=== PATIENT | female | born 1975 | race Caucasian/White ===

== ENCOUNTER 2022-03-05 15:09 | Outpatient (CLI) | payer MEDICAID, SELFPAY ==
--- NOTE | 2022-03-05 15:15 | MR_ITS ---
WS: [id number] MRI CERVICAL SPINE NONCONTRAST TECHNIQUE: Sagittal T1, T2 and STIR imaging. Axial T2, gradient, and fiesta imaging. CLINICAL INFORMATION: M47.812 - Spondylosis without myelopathy or radiculopathy... COMPARISON: None. FINDINGS: Straightening of the normal cervical lordosis. Central disc bulging C5-C6 with slight contact of the cervical cord and mild central canal stenosis. Cord signal is normal. Slight anterolisthesis C3 on C4 . C2-C3: Disc osteophyte complex with endplate ridging. Mild RIGHT bony foraminal narrowing. Mild facet arthropathy. C3-C4: Slight anterolisthesis. Disc osteophyte complex. Spinal canal is patent. Moderate LEFT bony foraminal narrowing with advanced LEFT facet arthropathy. C4-C5: Slight anterolisthesis. Advanced LEFT facet arthropathy. Mild LEFT bony foraminal narrowing. C5-C6: Slight retrolisthesis. Disc osteophyte complex with slight contact of the cervical cord and mi ld central canal stenosis. Mild to moderate RIGHT and no LEFT foraminal narrowing. Moderate facet art hropathy. C6-C7: Mild disc osteophytic ridging. Mild RIGHT and no significant LEFT foraminal narrowing. Moderat e RIGHT facet arthropathy. Tiny shallow central protrusion. C7-T1: No significant disc bulging. Spinal canal and foramen are patent. Visualized brain stem structures: Normal. Prevertebral soft tissues: Normal. MR/MR cervical spin wo con* [id number] IMPRESSION: 1. Straightening of the normal cervical lordosis. Cord signal is normal. Sligh t retrolisthesis C5 on C6. 2. Disc osteophyte complex C5-C6 with shallow central disc osteophyte protrusi on. Slight contact of the cervical cord. Mild central canal stenosis. 3. Moderate LEFT C3-C4 bony foraminal narrowing with advanced LEFT facet arthr opathy. 4. Mild RIGHT C2-C3, LEFT C4-C5, RIGHT C5-C6 and RIGHT C6-C7 bony foraminal na rrowing. 5. Advanced LEFT facet arthropathy C4-C5.
== END 2022-03-05 15:10 | disposition home or self-care (01) ==
LOC: RAD 15:11
PROVIDERS: PCP Registered Nurse; Visit Provider Registered Nurse
DX: M47.812 Spondylosis without myelopathy or radiculopathy, cervical region (principal); M25.78 Osteophyte, vertebrae; M48.02 Spinal stenosis, cervical region
CPT/HCPCS: 72141

== ENCOUNTER → 2022-07-03 10:21 | Outpatient (BNVA) | payer MEDICAID, SELFPAY | PROVIDERS: PCP Registered Nurse; Visit Provider Registered Nurse | DX: L98.9 Disorder of the skin and subcutaneous tissue, unspecified (principal) | CPT/HCPCS: 88304 ==

== ENCOUNTER → 2022-08-28 09:13 | Outpatient (BNVA) | payer MEDICAID, SELFPAY | PROVIDERS: PCP Registered Nurse | DX: R31.9 Hematuria, unspecified (principal) | CPT/HCPCS: 81000; 87086 ==

== ENCOUNTER → 2022-09-04 09:02 | Outpatient (BNVA) | payer MEDICAID, SELFPAY | PROVIDERS: PCP Registered Nurse; Visit Provider Registered Nurse | DX: E53.8 Deficiency of other specified B group vitamins (principal); A60.04 Herpesviral vulvovaginitis | CPT/HCPCS: 80053; 82306; 82607; 85025 ==

== ENCOUNTER → 2023-02-04 11:42 | Outpatient (BNVA) | payer MEDICAID, SELFPAY | PROVIDERS: PCP Registered Nurse; Visit Provider Registered Nurse | DX: M54.9 Dorsalgia, unspecified (principal); Z12.11 Encounter for screening for malignant neoplasm of colon; M54.6 Pain in thoracic spine; G89.29 Other chronic pain; Z90.710 Acquired absence of both cervix and uterus; Z79.899 Other long term (current) drug therapy | CPT/HCPCS: 81000 ==

== ENCOUNTER 2023-05-29 09:04 | Day surgery (SDC) | payer MEDICAID, SELFPAY ==
[2023-05-29 09:18] VITALS: BP 94/81; PULSE 83; RESP 18; TEMP 36.2; O2SAT 98; BMI 23.6
[2023-05-29] MEDS: sodium chloride 0.9% 1,000 ML 30 ML IV (09:22)
--- NOTE | 2023-05-29 09:29 | P.ANESASSM_ITS ---
Pre-Anesthetic Assessment Height/Weight: Height 1.55 m Weight 56.699 kg Temp Pulse Resp BP Pulse Ox O2 Del Method 97.2 F L 83 18 94/81 98 Room Air 05/29/23 09:18 05/29/23 09:18 05/29/23 09:18 05/29/23 09:18 05/29/23 09:18 05/29/23 09:18 Preop Diagnosis: Abdominal Pain Operation Date: 05/29/23 10:00 Proposed Procedures p [id number] egd [id number] colon G0121 screen colon A risk Z12.11,R10.9(Not Applicable) - Rafael Campbell DO s Colonoscopy(Not Applicable) - Rafael Campbell DO Familial anesthetic complications: none Was Beta Tracy taken within 24 hours: N/A Last intake: Intake Last Liquid Date 05/28/23 Last Liquid Time 21:00 Last Solid Date 05/27/23 Last Solid Time 20:00 Social No alcohol and No tobacco Exam alert, oriented x 3, clear to auscultation bilaterally and regular rate & rhythm Airway Submandibular: within normal limits Cervical ROM: within normal limits (cervical pain noted) Dentition: false Pulmonary None reported CV/HEM None reported None reported Hepatic None reported GI abdominal pain Metabolic None reported Anesthetic Plan ASA status: 1 Anesthesia: MAC Medications/Allergies Home Medications Medication Instructions Recorded Confirmed Last Taken Type acetaminophen 325 mg tablet 325 mg PO QID PRN Pain 06/21/22 05/29/23 05/28/23 History (Tylenol) tizanidine 4 mg capsule (Zanaflex) 4 mg PO TID PRN Pain 07/03/22 05/29/23 05/28/23 History naproxen sodium 220 mg tablet 220 mg PO BID PRN Pain 04/01/23 05/29/23 05/28/23 History (Aleve) celecoxib 200 mg capsule (Celebrex) 200 mg PO DAILY #30 caps 05/15/23 05/29/23 05/28/23 Rx valacyclovir 500 mg tablet 500 mg PO DAILY 05/27/23 05/29/23 05/28/23 History Allergies Allergy/AdvReac Type Severity Reaction Status Date / Time butorphanol [From Stadol] Allergy Unknown Verified 05/27/23 12:05 Sulfa (Sulfonamide Allergy Unknown Verified 05/27/23 12:05 Antibiotics) [facility] Anesthesia Medical History Environmental and seasonal allergies Herpes simplex virus (HSV) infection of vagina History of chronic back pain Surgical History History of lumpectomy of left breast 5 months agp Hx of carpal tunnel repair right wrist Hx of tubal ligation Hx of cone biopsy of cervix History of left oophorectomy History of hysterectomy Right ovary remains Family History Mother Diabetes Grandmother Diabetes Denies family history of CAD (coronary artery disease) Hyperlipidemia Chronic kidney disease (CKD) Lung disease Cancer Hypertension Stroke Social History Smoking and tobacco/nicotine status: former use of tobacco/nicotine Quit status (tobacco/nicotine): has quit using Year quit tobacco: 2018 Alcohol intake: never Substance/Drug Use: never Adopted: No Caregiver/support person: No Lives independently: No Household members: spouse Marital status: service: No Current occupational status: employed Sexually active: Yes Do you think of yourself as: Straight/Heterosexual Current gender identity: Female Data Anesthesia Cardiac Studies: No Data to Display
--- NOTE | 2023-05-29 09:47 | PM.HP ---
Providers/Chief Complaint Primary Care Provider: JUDE Velasco Chief Complaint: Z12.11, R10.9 History of Present Illness Marie Ferguson is a 48 year old female Review of Systems General: Reports: 10 or more systems reviewed and unremarkable except in HPI and below Medications/Allergies Home Medications Medication Instructions Recorded Confirmed Last Taken Type acetaminophen 325 mg tablet 325 mg PO QID PRN Pain 06/21/22 05/29/23 05/28/23 History (Tylenol) tizanidine 4 mg capsule (Zanaflex) 4 mg PO TID PRN Pain 07/03/22 05/29/23 05/28/23 History naproxen sodium 220 mg tablet 220 mg PO BID PRN Pain 04/01/23 05/29/23 05/28/23 History (Aleve) celecoxib 200 mg capsule (Celebrex) 200 mg PO DAILY #30 caps 05/15/23 05/29/23 05/28/23 Rx valacyclovir 500 mg tablet 500 mg PO DAILY 05/27/23 05/29/23 05/28/23 History Allergies Allergy/AdvReac Type Severity Reaction Status Date / Time butorphanol [From Stadol] Allergy Unknown Verified 05/27/23 12:05 Sulfa (Sulfonamide Allergy Unknown Verified 05/27/23 12:05 Antibiotics) PFSH Acute PFSH: Medical History Environmental and seasonal allergies Herpes simplex virus (HSV) infection of vagina History of chronic back pain Surgical History History of lumpectomy of left breast 5 months agp Hx of carpal tunnel repair right wrist Hx of tubal ligation Hx of cone biopsy of cervix History of left oophorectomy History of hysterectomy Right ovary remains Family History Mother Diabetes Grandmother Diabetes Denies family history of CAD (coronary artery disease) Hyperlipidemia Chronic kidney disease (CKD) Lung disease Cancer Hypertension Stroke Social History Smoking and tobacco/nicotine status: former use of tobacco/nicotine Quit status (tobacco/nicotine): has quit using Year quit tobacco: 2018 Alcohol intake: never Substance/Drug Use: never Adopted: No Caregiver/support person: No Lives independently: No Household members: spouse Marital status: service: No Current occupational status: employed Sexually active: Yes Do you think of yourself as: Straight/Heterosexual Current gender identity: Female Vitals/I&O/Wt Last Vital Signs Temp 97.2 F L 05/29/23 09:18 Pulse 83 05/29/23 09:18 Resp 18 05/29/23 09:18 BP 94/81 05/29/23 09:18 Pulse Ox 98 05/29/23 09:18 O2 Del Method Room Air 05/29/23 09:18 Weight last 48 hrs Weight 125 lb A&P Assessment and plan (1) Screening for colon cancer: (2) Abdominal pain: Plan EGD and colonoscopy Attestations Medical Necessity Statement*: Home Coding Level of Care Code Acute Code for Chg Fwd Diagnoses Screening for colon cancer Z12.11 Abdominal pain R10.9
[2023-05-29 10:09] VITALS: BP 112/80; PULSE 78; RESP 14; TEMP 36.4; O2SAT 99
[2023-05-29 10:25] VITALS: BP 110/73; PULSE 97; RESP 16; O2SAT 99
--- NOTE | 2023-05-29 11:00 | ANE.PACU2 ---
Inpatient post-anesthesia follow up: Airway intact: Yes Vital signs: Temperature 97.5 F Pulse Rate 97 Respiratory Rate 16 Blood Pressure 110/73 Pulse Oximetry 99 Oxygen Delivery Me thod Room Air Oxygen Flow Rate Fraction of Inspir ed Oxygen Hydration adequate: Yes Nausea and vomiting: No Pain level: 1 Mental status: Baseline
== END 2023-05-29 10:58 | disposition home or self-care (01) ==
PROVIDERS: PCP Registered Nurse; Visit Provider Surgery
PROC: 0DJ08ZZ Inspection of Upper Intestinal Tract, Via Natural or Artificial Opening Endoscopic (ICD-10-PCS; CPT 43235; principal; 2023-05-29 10:00)
PROC: 0DJD8ZZ Inspection of Lower Intestinal Tract, Via Natural or Artificial Opening Endoscopic (ICD-10-PCS; CPT 45378; 2023-05-29 10:00)
DX: Z12.11 Encounter for screening for malignant neoplasm of colon (principal); Z87.891 Personal history of nicotine dependence; R10.9 Unspecified abdominal pain
CPT/HCPCS: 43239; 45378; 88305; J2704; J7030

== ENCOUNTER → 2023-09-11 10:59 | Outpatient (BNVA) | payer MEDICAID, SELFPAY | PROVIDERS: PCP Registered Nurse; Visit Provider Registered Nurse | DX: M25.50 Pain in unspecified joint (principal); Z13.6 Encounter for screening for cardiovascular disorders; M50.20 Other cervical disc displacement, unspecified cervical region; L98.9 Disorder of the skin and subcutaneous tissue, unspecified | CPT/HCPCS: 80053; 80061; 86140 ==

== ENCOUNTER → 2024-12-16 10:13 | Outpatient (BNVA) | payer MEDICAID, SELFPAY | PROVIDERS: PCP Registered Nurse; Visit Provider Registered Nurse | DX: R10.9 Unspecified abdominal pain (principal); N39.0 Urinary tract infection, site not specified | CPT/HCPCS: 80048; 81000; 85025 ==